=== PATIENT | female | born 1990 | race Hispanic/Latino ===

== ENCOUNTER 2018-03-12 09:22 | Emergency (ER) | payer MEDICAID, OTHER ==
[2018-03-12 09:24] VITALS: BMI 29.7
[2018-03-12 09:44] VITALS: O2SAT 98
--- NOTE | 2018-03-12 10:21 | ED PDOC ---
HPI: Female Pain Time Seen by Provider: 03/12/18 10:02 Chief Complaint (Nursing): Abdominal Pain Chief Complaint (Provider): Foreign body removal History Per: Patient History/Exam Limitations: no limitations Onset/Duration Of Symptoms: Days (x4) Current Symptoms Are (Timing): Still Present Additional Complaint(s): Roxana Howard is a 28 year old female, with no significant past medical history , who presents to the emergency department for removal of a tampon onset for x4 days. Patient reports she put a tampon on Sunday, forgot it was there and put another tampon in. Patient tried to pull it out herself but thinks she pushed it further in. She denies any other medical complaints. PMD: None provided. Past Medical History Reviewed: Historical Data, Nursing Documentation, Vital Signs Vital Signs: Last Vital Signs Temp Pulse Resp BP Pulse Ox 98 03/12/18 09:37 - Medical History PMH: No Chronic Diseases - Surgical History Surgical History: No Surg Hx - Family History Family History: States: Unknown Family Hx - Social History Current smoker - smoking cessation education provided: No Alcohol: None Drugs: Denies - Home Medications Home Medications: Ambulatory Orders Medication Instructions Recorded Multivit/Folic Acid/I 1 tab PO DAILY 12/07/15 [] Nitrofurantoin Macrocrystals 100 mg PO BID #14 cap 03/29/16 [Macrobid] traMADol [Ultram] 50 mg PO Q6 #16 tab 03/30/16 - Allergies Allergies/Adverse Reactions: Allergies Allergy/AdvReac Type Severity Reaction Status Date / Time No Known Allergies Allergy Verified 03/12/18 09:37 Review of Systems ROS Statement: Except As Marked, All Systems Reviewed And Found Negative Genitourinary Female: Positive for: Other (foreign body) Physical Exam - Reviewed Nursing Documentation Reviewed: Yes Vital Signs Reviewed: Yes - Physical Exam Appears: Positive for: Non-toxic, No Acute Distress Head Exam: Positive for: ATRAUMATIC, NORMOCEPHALIC Skin: Positive for: Normal Color, Warm, Dry Eye Exam: Positive for: Normal appearance Neck: Positive for: Painless ROM Respiratory: Negative for: Respiratory Distress Gastrointestinal/Abdominal: Positive for: Normal Exam, Soft, Tenderness. Negative for: Guarding, Rebound Pelvic Exam: Positive for: Other (Mild odorous, tampon in which was removed. Director Of Therapy Services: DANDRE Sanchez). Negative for: Discharge (active) Extremity: Positive for: Normal ROM (all extremities). Negative for: Deformity , Swelling Neurologic/Psych: Positive for: Alert, Oriented. Negative for: Motor/Sensory Deficits - ECG O2 Sat by Pulse Oximetry: 98 (RA) Pulse Ox Interpretation: Normal Medical Decision Making Medical Decision Making: Initial Impression: Foreign body removal Initial Plan: --Urine --Reevaluation Scribe Attestation: Documented by Kaiden Null, acting as a scribe for Karly Singh MD Provider Scribe Attestation: All medical record entries made by the Scribe were at my direction and personally dictated by me. I have reviewed the chart and agree that the record accurately reflects my personal performance of the history, physical exam, medical decision making, and the department course for this patient. I have also personally directed, reviewed, and agree with the discharge instructions and disposition. Disposition - Clinical Impression Clinical Impression: Foreign body in vagina - Disposition Disposition: Routine/Home Disposition Time: 10:22 Condition: STABLE Additional Instructions: FOLLOW-UP WITH PMD WITHIN 2 DAYS FOR REEVALUATION. Instructions: Removal of Foreign Body in Skin Forms: [employer] (Portuguese)
--- NOTE | 2018-03-12 10:22 | ED PDOC ---
HPI: General Adult Time Seen by Provider: 03/12/18 10:02 Chief Complaint (Nursing): Abdominal Pain Chief Complaint (Provider): Foreign object removal Past Medical History Vital Signs: Last Vital Signs Temp Pulse Resp BP Pulse Ox 98 03/12/18 10:32 - Surgical History Surgical History: No Surg Hx - Family History Family History: States: Unknown Family Hx - Home Medications Home Medications: Ambulatory Orders Medication Instructions Recorded Multivit/Folic Acid/I 1 tab PO DAILY 12/07/15 [] Nitrofurantoin Macrocrystals 100 mg PO BID #14 cap 03/29/16 [Macrobid] traMADol [Ultram] 50 mg PO Q6 #16 tab 03/30/16 - Allergies Allergies/Adverse Reactions: Allergies Allergy/AdvReac Type Severity Reaction Status Date / Time No Known Allergies Allergy Verified 03/12/18 09:37 Review of Systems ROS Statement: Except As Marked, All Systems Reviewed And Found Negative Genitourinary Female: Positive for: Other (tampon removal) Physical Exam - Reviewed Nursing Documentation Reviewed: Yes Vital Signs Reviewed: Yes - Physical Exam Appears: Positive for: Non-toxic, No Acute Distress Head Exam: Positive for: ATRAUMATIC, NORMOCEPHALIC Skin: Positive for: Normal Color, Warm, Dry Eye Exam: Positive for: Normal appearance Neck: Positive for: Painless ROM Gastrointestinal/Abdominal: Positive for: Soft. Negative for: Tenderness, Guarding, Rebound Pelvic Exam: Positive for: Other (Tampon in, which was removed. Addiction Therapist: DANDRE Sanchez ). Negative for: Discharge (active) Extremity: Positive for: Normal ROM (all extremities). Negative for: Deformity , Swelling Neurologic/Psych: Positive for: Alert, Oriented. Negative for: Motor/Sensory Deficits - ECG O2 Sat by Pulse Oximetry: 98 (RA) Pulse Ox Interpretation: Normal Disposition - Clinical Impression Clinical Impression: Foreign body in vagina - Disposition Additional Instructions: FOLLOW-UP WITH PMD WITHIN 2 DAYS FOR REEVALUATION. Instructions: Removal of Foreign Body in Skin Forms: [employer] (Togolese)
== END 2018-03-12 10:49 | disposition home or self-care (01) ==
LOC: H.ER 09:22
DX: T19.2XXA Foreign body in vulva and vagina, initial encounter (principal)

== ENCOUNTER 2018-10-05 10:32 | Emergency (ER) | payer MEDICAID ==
[2018-10-05 10:32] VITALS: BMI 29.7
[2018-10-05 10:36] VITALS: RESP 18; O2SAT 100
--- NOTE | 2018-10-05 11:54 | ED PDOC ---
HPI: Female Pain Time Seen by Provider: 10/05/18 10:47 Chief Complaint (Nursing): Female Genitourinary Chief Complaint (Provider): Female Genitourinary History Per: Patient History/Exam Limitations: no limitations Onset/Duration Of Symptoms: Days (x 2 weeks ) Current Symptoms Are (Timing): Still Present Quality Of Discomfort: "Pain" Additional Complaint(s): 28 year old female with abdominal pain, vaginal bleeding and vaginal discharge for 2 weeks. Patient reports pain around her site which was performed 2 years ago. Denies itching or other medical complaints. PMD: Quinten Jara Past Medical History Reviewed: Historical Data, Nursing Documentation, Vital Signs Vital Signs: Last Vital Signs Temp 97.4 F L 10/05/18 10:36 Pulse 72 10/05/18 10:36 Resp 18 10/05/18 10:36 BP 123/75 10/05/18 10:36 Pulse Ox 100 10/05/18 10:36 - Medical History PMH: No Chronic Diseases - Surgical History Surgical History: No Surg Hx - Family History Family History: States: Unknown Family Hx - Home Medications Home Medications: Ambulatory Orders Medication Instructions Recorded Multivit/Folic Acid/I 1 tab PO DAILY 12/07/15 [] Nitrofurantoin Macrocrystals 100 mg PO BID #14 cap 03/29/16 [Macrobid] traMADol [Ultram] 50 mg PO Q6 #16 tab 03/30/16 Nitrofurantoin Macrocrystals 100 mg PO BID #13 cap 10/05/18 [Macrobid] Pnv No.95/Ferrous Fum/Folic AC 1 each PO DAILY #30 tablet 10/05/18 [ Vitamins Tablet] - Allergies Allergies/Adverse Reactions: Allergies Allergy/AdvReac Type Severity Reaction Status Date / Time No Known Allergies Allergy Verified 03/12/18 09:37 Review of Systems ROS Statement: Except As Marked, All Systems Reviewed And Found Negative Gastrointestinal: Positive for: Abdominal Pain (suprapubic; pain around C- section site) Genitourinary Female: Positive for: Vaginal Discharge, Vaginal Bleeding Physical Exam - Reviewed Nursing Documentation Reviewed: Yes Vital Signs Reviewed: Yes - Physical Exam Appears: Positive for: Non-toxic, No Acute Distress Head Exam: Positive for: ATRAUMATIC, NORMAL INSPECTION, NORMOCEPHALIC Skin: Positive for: Normal Color, Warm, Dry Eye Exam: Positive for: EOMI, Normal appearance, PERRL Neck: Positive for: Normal, Painless ROM, Supple Cardiovascular/Chest: Positive for: Regular Rate, Rhythm. Negative for: Murmur Respiratory: Positive for: Normal Breath Sounds. Negative for: Respiratory Distress Gastrointestinal/Abdominal: Positive for: Tenderness (mild lower abdominal tenderness) Pelvic Exam: Positive for: Discharge (white ). Negative for: Active Bleeding, Blood Back: Positive for: Normal Inspection. Negative for: L CVA Tenderness, R CVA Tenderness Extremity: Positive for: Normal ROM. Negative for: Deformity Neurologic/Psych: Positive for: Alert, Oriented. Negative for: Motor/Sensory Deficits - Laboratory Results Result Diagrams: 10/05/18 11:52 10/05/18 11:52 - ECG O2 Sat by Pulse Oximetry: 100 (RA) Pulse Ox Interpretation: Normal Medical Decision Making Medical Decision Makin:45 Initial Plan: --Blood type --Beta HCG --CMP --urine preg --Urine dip --Chlamydia --Genital cx --OB preg US --UA [employer]il [employer] Aide for pelvic exam was [facility]. 14:47 US Transvaginal FINDINGS: UTERUS: Measures 8.0 x 5.6 x 6.7 cm. Anteverted. Normal in size and appearance. No fibroid or other mass lesion seen. ENDOMETRIUM: There is a single living intrauterine gestation. Gestational sac: MS D = 3.4 cm = 8 weeks 3 days Yolk sac: 0.3 cm pole: 1.3 cm = 7 weeks 4 days Heart motion: 159 BPM Average ultrasound age: 8 weeks 0 days +/-0 weeks 4 days FANNIE based on average ultrasound age = 0705/17/2019.: LMP: 05/28/2019 CERVIX: No cervical abnormality identified. Closed measuring approximately 2.8 cm RIGHT OVARY: Measures 2.6 x 1.5 x 2.6 cm. No solid mass. Normal flow. LEFT OVARY: Measures 2.2 x 1.0 x 2.0 cm. No solid mass. Normal flow. FREE FLUID: No significant free fluid noted. OTHER FINDINGS: None. IMPRESSION: Single living intrauterine gestation with average ultrasound age 8 weeks 0 days +/-0 weeks 4 days. Heart rate document at 159 BPM ------- Scribe Attestation: Documented by Arti Lam, acting as a scribe for Karly Singh MD Provider Scribe Attestation: All medical record entries made by the Scribe were at my direction and personally dictated by me. I have reviewed the chart and agree that the record accurately reflects my personal performance of the history, physical exam, medical decision making, and the department course for this patient. I have also personally directed, reviewed, and agree with the discharge instructions and disposition. Disposition - Clinical Impression Clinical Impression: UTI (urinary tract infection), Abdominal pain in - Disposition Referrals: [facility] [Outside] [facility] [Outside] Disposition: Routine/Home Disposition Time: 14:58 Condition: STABLE Prescriptions: Nitrofurantoin Macrocrystals [Macrobid] 100 mg PO BID #13 cap Pnv No.95/Ferrous Fum/Folic AC [ Vitamins Tablet] 1 each PO DAILY #30 tablet Instructions: Urinary Tract Infections in Adults, - The Second Month, - The Third Month Forms: [employer] (Citizen [place])
[2018-10-05 12:02] LABS: BASO # 0.1 K/uL (0.0-0.2); BASO % 0.6 % (0.0-2.0); EOS # 0.1 K/uL (0.0-0.7); EOS % 0.6 % (0.0-4.0); HEMOGLOBIN 14.1 g/dL (12.0-16.0); LYMPH % 19.7 % (20.0-40.0); MEAN CELL VOLUME 93.8 fl (81.0-99.0); MEAN CORPUSCULAR HEMOGLOBIN 32.5 pg (27.0-31.0); MEAN CORPUSCULAR HGB CONC 34.6 g/dL (33.0-37.0); MEAN PLATELET VOLUME 7.1 fl (7.2-11.7); MONO # 0.8 K/uL (0.0-0.8); MONO % 7.7 % (0.0-10.0); NEUT # 7.2 K/uL (1.8-7.0); NEUT % 71.4 % (50.0-75.0); RBC 4.35 Mil/uL (3.80-5.20); RED CELL DISTRIBUTION WIDTH 12.3 % (11.5-14.5); WHITE BLOOD COUNT 10.1 K/uL (4.8-10.8)
[2018-10-05 12:23] LABS: ALB/GLOB RATIO 1.2 (1.0-2.1); ALBUMIN 4.2 g/dL (3.5-5.0); ALT/SGPT 32 U/L (9-52); AST/SGOT 40 U/L (14-36); BLOOD UREA NITROGEN 9 mg/dl (7-17); CALCIUM 8.9 mg/dL (8.4-10.2); GFR NON-AFRICAN AMERICAN > 60
[2018-10-05 14:16] LABS: SQUAMOUS EPITHIAL 5 /hpf (0-5); URINE BILIRUBIN NEGATIVE (NEGATIVE); URINE BLOOD NEGATIVE (NEGATIVE); URINE COLOR YELLOW (YELLOW); URINE GLUCOSE (UA) NEG (Normal); URINE LEUKOCYTE ESTERASE SMALL Leu/uL (Negative); URINE PROTEIN NEGATIVE (NEGATIVE)
[2018-10-05 14:33] LABS: URINE CLARITY SLIGHT-CLOUDY (Clear)
--- NOTE | 2018-10-05 14:51 | US ---
Date of service: 10/05/2018 HISTORY: Lower abd pain COMPARISON: None available. TECHNIQUE: Transvaginal sonographic evaluation of the pelvis performed FINDINGS: UTERUS: Measures 8.0 x 5.6 x 6.7 cm. Anteverted. Normal in size and appearance. No fibroid or other mass lesion seen. ENDOMETRIUM: There is a single living intrauterine gestation. Gestational sac: MS D = 3.4 cm = 8 weeks 3 days Yolk sac: 0.3 cm pole: 1.3 cm = 7 weeks 4 days Heart motion: 159 BPM Average ultrasound age: 8 weeks 0 days +/-0 weeks 4 days FANNIE based on average ultrasound age = 0705/17/2019.: LMP: 05/28/2019 CERVIX: No cervical abnormality identified. Closed measuring approximately 2.8 cm RIGHT OVARY: Measures 2.6 x 1.5 x 2.6 cm. No solid mass. Normal flow. LEFT OVARY: Measures 2.2 x 1.0 x 2.0 cm. No solid mass. Normal flow. FREE FLUID: No significant free fluid noted. OTHER FINDINGS: None. IMPRESSION: Single living intrauterine gestation with average ultrasound age 8 weeks 0 days +/-0 weeks 4 days. Heart rate document at 159 BPM
[2018-10-05 15:09] VITALS: BP 122/70; PULSE 78; TEMP 98
== END 2018-10-05 15:10 | disposition home or self-care (01) ==
LOC: H.ER 10:32
DX: O20.9 Hemorrhage in early pregnancy, unspecified (principal); O23.41 Unspecified infection of urinary tract in pregnancy, first trimester

== ENCOUNTER 2019-04-10 16:20 | Emergency (ER) | payer MEDICAID ==
[2019-04-10 16:21] VITALS: BMI 29.7
[2019-04-10 16:37] VITALS: BP 127/73; PULSE 64; RESP 16; TEMP 98.2; O2SAT 99
--- NOTE | 2019-04-10 17:42 | ED PDOC ---
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[employer] Past Medical History Reviewed: Historical Data, Nursing Documentation, Vital Signs Vital Signs: Last Vital Signs Temp 98.2 F 04/10/19 16:36 Pulse 64 04/10/19 16:36 Resp 16 04/10/19 16:36 BP 127/73 04/10/19 16:36 Pulse Ox 99 04/10/19 16:36 Primary Care Provider: FAMILY PROVIDER,NO - Medical History PMH: No Chronic Diseases - Surgical History Surgical History: No Surg Hx - Family History Family History: States: Unknown Family Hx - Social History Current smoker - smoking cessation education provided: Yes - Home Medications Home Medications: Ambulatory Orders Medication Instructions Recorded Multivit/Folic Acid/I 1 tab PO DAILY 12/07/15 [] Nitrofurantoin Macrocrystals 100 mg PO BID #14 cap 03/29/16 [Macrobid] traMADol [Ultram] 50 mg PO Q6 #16 tab 03/30/16 Nitrofurantoin Macrocrystals 100 mg PO BID #13 cap 10/05/18 [Macrobid] Pnv No.95/Ferrous Fum/Folic AC 1 each PO DAILY #30 tablet 10/05/18 [ Vitamins Tablet] - Allergies Allergies/Adverse Reactions: Allergies Allergy/AdvReac Type Severity Reaction Status Date / Time No Known Allergies Allergy Verified 04/10/19 16:37 Review of Systems ROS Statement: Except As Marked, All Systems Reviewed And Found Negative (and as per HPI) Constitutional: Negative for: Fever, Chills Gastrointestinal: Positive for: Abdominal Pain. Negative for: Nausea, Vomiting Genitourinary Female: Positive for: Vaginal Bleeding, Pelvic Pain (crmpaing intermittent) Physical Exam - Reviewed Nursing Documentation Reviewed: Yes Vital Signs Reviewed: Yes - Physical Exam Appears: Positive for: Well, Non-toxic Head Exam: Positive for: ATRAUMATIC, NORMOCEPHALIC Skin: Positive for: Warm, Dry Gastrointestinal/Abdominal: Positive for: Soft. Negative for: Tenderness, Mass, Distended, Guarding Pelvic Exam: Positive for: External Exam Normal, Speculum Exam Normal, Blood (scant). Negative for: Other (foreign body or tampon) - ECG O2 Sat by Pulse Oximetry: 99 Disposition - Clinical Impression Clinical Impression: Vaginal bleeding, abnormal Counseled Patient/Family Regarding: Diagnosis, Need For Followup - Disposition Referrals: Quinten Jara MD [Staff Provider] - (FOLLOWUP WITH DR MOSELEY WITHIN A WEEK FOR FURTHER EVALUATION OF IRREGULAR VAGINAL BLEEDING) Disposition: Routine/Home Disposition Time: 17:00 Condition: GOOD Instructions: Heavy Periods (DC)
== END 2019-04-10 18:56 | disposition home or self-care (01) ==
LOC: H.ER 16:20
DX: N93.9 Abnormal uterine and vaginal bleeding, unspecified (principal); F17.200 Nicotine dependence, unspecified, uncomplicated